=== PATIENT | male | born 1960 | race Caucasian/White ===

== ENCOUNTER 2024-03-28 06:00 | Day surgery (SDC) | payer BC ==
[2024-03-28] MEDS ORDERED: Propofol 200 MG/20 ML SDV IV ONE (06:01)
[2024-03-28] MEDS ORDERED: Ketamine 500 mg/10 ML MDV IV ONE (06:01)
[2024-03-28] MEDS ORDERED: Lidocaine 2% 100 MG/5 ML Syringe IVPUSH ONE (06:01)
[2024-03-28] MEDS ORDERED: Midazolam 1 MG/ML 2 ML SDV IV ONE (06:01)
[2024-03-28] MEDS ORDERED: Glycopyrrolate 0.2 MG/ML 5 ML MDV IV ONE (06:01)
[2024-03-28] MEDS ORDERED: Sodium Chloride 0.9% 10 ML Syringe FLUSH PRN (06:15)
[2024-03-28] MEDS: Lactated Ringers 1,000 ML IV SCH (07:16)
[2024-03-28] MEDS: Simethicone Drops 40 MG/0.6 ML 30 ML Bottle ONE (07:42)
== END 2024-03-28 09:20 | disposition home or self-care (01) ==
LOC: FB.SDS 06:00
PROVIDERS: ATTEND Surgery
DX: Z12.11 Encounter for screening for malignant neoplasm of colon (principal); R19.5 Other fecal abnormalities; D12.6 Benign neoplasm of colon, unspecified; K40.90 Unilateral inguinal hernia, without obstruction or gangrene, not specified as recurrent
CPT/HCPCS: 00811; 45385; 88305; A9270; J1596; J2250; J2704; J3490; J7120